=== PATIENT | male | born 1970 | race Caucasian/White ===

== ENCOUNTER 2017-08-01 11:32 | Inpatient (IN) | payer MEDICARE ==
[~2017-08-01] VITALS: Ht 170.2 cm; Wt 68.0 kg
[~2017-08-01 11:32] MED LIST: BACL20 PO; BACL20TA PO; CARB100C PO; CARB200 PO; CARV12.5 PO; CLOP75 PO; CORE25TA PO; DIPH50 PO; ECOT81TA2 PO; FURO1TAB93 PO; HALO10 PO; HYDR-3129 PO; IBUP800T23 PO; KCL20 PO; KLON2TAB PO; LAMO200T PO; MUPI2%T TOP; PLAV75TA PO; POTA10TA2 PO; PRAV20 PO; SERO400T PO; TRAZ100T4 PO; TRAZ300T2 PO; [UNRECOGNIZED DRUG - CODE] PO
[2017-08-01 11:37] VITALS: BP 152/78; PULSE 102; RESP 18; TEMP 98.5; O2SAT 96
[2017-08-01 13:05] LABS: AUTOMATED NEUTROPHIL # 6.6 TH/MM3 (1.8-7.7); BASOPHIL % 0.2 % (0.0-2.0); EOSINOPHIL % 0.1 % (0.0-4.0); HEMATOCRIT 49.5 % (39.0-51.0); HEMOGLOBIN 17.1 GM/DL (13.0-17.0); LYMPH % 14.4 % (9.0-44.0); LYMPHOCYTE # 1.2 TH/MM3 (1.0-4.8); MEAN CORPUSCULAR HEMOGLOBIN 33.8 PG (27.0-34.0); MEAN CORPUSCULAR HGB CONC 34.5 % (32.0-36.0); MEAN PLATELET VOLUME 7.6 FL (7.0-11.0); MONO % 6.9 % (0.0-8.0); MONOCYTE # 0.6 TH/MM3 (0-0.9); NEUT % 78.4 % (16.0-70.0); PLATELET COUNT 223 TH/MM3 (150-450); RED BLOOD COUNT 5.05 MIL/MM3 (4.50-5.90); RED CELL DISTRIBUTION WIDTH 14.6 % (11.6-17.2); WHITE BLOOD COUNT 8.5 TH/MM3 (4.0-11.0)
[2017-08-01 13:27] LABS: BICARBONATE 26.6 MEQ/L (21.0-32.0); BLOOD UREA NITROGEN 11 MG/DL (7-18); CALCIUM 9.3 MG/DL (8.5-10.1); CHLORIDE 100 MEQ/L (98-107); CREATININE 1.18 MG/DL (0.60-1.30); GLOMERULAR FILTRATION RATE 66 ML/MIN (>89); GLUCOSE,RANDOM 241 MG/DL (74-106); SODIUM (NA) 139 MEQ/L (136-145)
[2017-08-01] MEDS ORDERED: OLANZapine IM 10 MG VIAL IM ONE (13:45)
[2017-08-01] MEDS ORDERED: diphenhydrAMINE HCL 50 MG/ML VIAL IM ONE ×2 (13:45→15:30)
--- NOTE | 2017-08-01 14:49 | PD ---
HPI Chief Complaint: Psychiatric Symptoms Time Seen by Provider: 13:17 Travel History International Travel<30 days: No Contact w/Intl Traveler<30days: No Traveled to known affect area: No History of Present Illness HPI 39-year-old male that presents to the ED for evaluation of voluntary psych evaluation. Per report given by ED nurse apparently brought the patient here because he has not been sleeping for some time and has been acting bizarre. He does have a history of bipolar disorder and psychosis and has been here in the past but has been some years since his last admission here. He himself cannot really give me much history and he appears to be actively psychotic. He per ED nurse report has been taking of his clothes multiple times and walked into other patient's rooms. He appears to follow commands if resurrected but he continues to be somewhat psychotic. History is very limited. Patient himself cannot really give much history. He denies any suicidal homicidal ideation. No obvious sign of substance abuse. He does have a history of COPD. History of heart disease for more medical records. Unclear if patient takes any medications currently. Again history is limited. By the time I had to see the patient patient had to be medicated secondary to psychosis. PFSH Past Medical History AAA: No ADD: No ADHD: No Alzheimer's Disease: No Anemia: No Arthritis: No Asthma: No Atrial Fibrillation: No Autoimmune Disease: No Blood Disorders: No Bipolar Disorder: No Anxiety: No Depression: Yes Heart Rhythm Problems: No Cancer: No Cardiac Catheterization: No Cardiomyopathy: No Cardiovascular Problems: Yes Cerebral Palsy: No High Cholesterol: No Chemotherapy: No Chest Pain: No Congestive Heart Failure: No Cirrhosis: No COPD: Yes Cerebrovascular Accident: No Coronary Artery Disease: No Cystic Fibrosis: No Dementia: No Developmental Delay: No Diabetes: No Patient Takes Glucophage: No Dialysis: No Diminished Hearing: No Diverticulitis: No Deep Vein Thrombosis: No Endocrine: No Fibromyalgia: No Gastrointestinal Disorders: No Genetic Disorder: No GERD: No Glaucoma: No Gout: No Genitourinary: Yes (urinary frequency) Headaches: No Hepatitis: No Hiatal Hernia: No Heparin Induced Thrombocytopen: No Herniated Disk: Yes Hypertension: No Immune Disorder: No Inguinal Hernia: No Implanted Vascular Access Dvce: No Insomnia: Yes Kidney Stones: No Medical other: No Musculoskeletal: No Neurologic: No Parkinson's Disease: No Psychiatric: Yes Reproductive: No Respiratory: Yes Resp. Syncytial Virus (RSV): No Integumentary: No Immunizations Current: Yes Migraines: No Myocardial Infarction: No Pancreatitis: No Pneumonia: No Radiation Therapy: No Renal Failure: No Schizophrenia: No Seizures: No Shingles: No Sickle Cell Disease: No Sleep Apnea: No Thyroid Disease: No Triglycerides - High: No Ulcer: No Tetanus Vaccination: Unknown Influenza Vaccination: No Past Surgical History Abdominal Aneurysm Repair: No Abdominal Surgery: No AICD: No Appendectomy: No Arteriovenous Shunt: No Cardiac Surgery: Yes Cholecystectomy: No Coronary Artery Bypass Graft: Yes Coronary Stent: No Ear Surgery: No Endocrine Surgery: No Eye Surgery: No Genitourinary Surgery: No Gynecologic Surgery: No Insulin Pump: No Joint Replacement: No Mastectomy: No Neurologic Surgery: No Oral Surgery: No Pacemaker: No Prostatectomy: No Thoracic Surgery: No Tonsillectomy: No Tympanostomy Tube: No Valve Replacement: No Other Surgery: No Family History Family Breast Cancer: No Family Myocardial Infarction: No Family Hypercholesterolemia: No Social History Alcohol Use: Yes (Alot) Tobacco Use: Yes Substance Use: Yes Allergies-Medications (Allergen,Severity, Reaction): Coded Allergies: No Known Allergies (Unverified , 06/12/14) Reported Meds & Prescriptions Reported Meds & Active Scripts Active Bactroban 2% Cream (15gm) (Mupirocin) 15 Applic/15 Gm Cr 1 Applic TOP Q12 Desyrel 100 Mg Tab (Trazodone Hcl) 100 Mg Tab 300 Mg PO HS Pravastatin Sodium 20 Mg Tab 20 Mg PO HS Kcl 20 Meq Tab (Potassium Chloride) 20 Meq Tabcr 20 Meq PO BID Haldol (Haloperidol) 10 Mg Tab 10 Mg PO BID Furosemide 40 Mg Tab 40 Mg PO DAILY Diphenhydramine HCl 50 Mg Cap 50 Mg PO HS Plavix (Clopidogrel Bisulfate) 75 Mg Tab 75 Mg PO DAILY Coreg 12.5 mg (Carvedilol) 12.5 Mg Tab 25 Mg PO Q12 Carbamazepine 100 Mg Chew 100 Mg PO HS Tegretol 200 Mg Tab (Carbamazepine) 200 Mg Tab 200 Mg PO BID Baclofen 20 Mg Tab 20 Mg PO TID Ecotrin (Aspirin) 81 Mg Tabec 81 Mg PO DAILY Reported Potassium Chloride Er (Potassium Chloride) 10 Meq Tab 20 Meq PO BID Lasix (Furosemide) 40 Mg Tab 40 Mg PO DAILY Lioresal 20 Mg Tab (Baclofen) 20 Mg Tab 20 Mg PO TID Lamictal (Lamotrigine) 200 Mg Tab 200 Mg PO DAILY Seroquel 400 mg (Quetiapine Fumarate) 400 Mg Tab 800 Mg PO HS Polson 10/325 (Hydrocodone-Acetaminophen 10/325) Acetaminophen 325/10 Hydrocodone Tab 1 Tab PO Q6H PRN Benadryl Allergy & Sinus (Diphenhydramine-Phenylephrine-) Sinus Tab 50 Mg PO HS Ibuprofen 800 Mg Tab 800 Mg PO TID PRN Coreg 25 mg (Carvedilol) 25 Mg Tab 25 Mg PO BID Plavix (Clopidogrel Bisulfate) 75 Mg Tab 75 Mg PO DAILY Klonopin (Clonazepam) 2 Mg Tab 1 Mg PO QID Trazodone Hcl (Trazodone HCl) 300 Mg Tab 300 Mg PO HS Review of Systems ROS Limitations: Psychotic, Poor Historian Except as stated in HPI: all other systems reviewed are Neg Physical Exam Exam Limitations: Poor Historian, Psychotic Narrative GENERAL: SKIN: Warm and dry. HEAD: Atraumatic. Normocephalic. EYES: Pupils equal and round. No scleral icterus. No injection or drainage. ENT: No nasal bleeding or discharge. Mucous membranes pink and moist. Tongue is midline. No uvula deviation. NECK: Trachea midline. No JVD. CARDIOVASCULAR: Regular rate and rhythm. No murmurs, S3, S4. RESPIRATORY: No accessory muscle use. Clear to auscultation. Breath sounds equal bilaterally. GASTROINTESTINAL: Abdomen soft, non-tender, nondistended. Hepatic and splenic margins not palpable. MUSCULOSKELETAL: Extremities without clubbing, cyanosis, or edema. No obvious deformities. Full range of motion of the upper and lower extremities bilaterally. 2+ pulses bilaterally. NEUROLOGICAL: Awake and alert. No obvious cranial nerve deficits. Motor grossly within normal limits. Five out of 5 muscle strength in the arms and legs. Normal speech. PSYCHIATRIC: psychotic mood and affect; insight and judgment questionable Data Data Last Documented VS Vital Signs Date Time Temp Pulse Resp B/P (MAP) Pulse Ox O2 Delivery O2 Flow Rate FiO2 08/01/17 11:37 98.5 102 18 152/78 (102) 96 Orders Orders Complete Blood Count With Diff (08/01/17 12:35) Thyroid Stimulating Hormone (08/01/17 12:35) Basic Metabolic Panel (Bmp) (08/01/17 12:35) Psych Screen (08/01/17 12:35) Drug Screen, Random Urine (08/01/17 12:35) Alcohol (Ethanol) (08/01/17 12:35) Olanzapine Inj (Zyprexa Inj) (08/01/17 13:45) Diphenhydramine Inj (Benadryl Inj) (08/01/17 13:45) Restraints Violent (08/01/17 13:56) Labs Laboratory Tests Test 08/01/17 12:45 White Blood Count 8.5 TH/MM3 Red Blood Count 5.05 MIL/MM3 Hemoglobin 17.1 GM/DL Hematocrit 49.5 % Mean Corpuscular Volume 98.0 FL Mean Corpuscular Hemoglobin 33.8 PG Mean Corpuscular Hemoglobin Concent 34.5 % Red Cell Distribution Width 14.6 % Platelet Count 223 TH/MM3 Mean Platelet Volume 7.6 FL Neutrophils (%) (Auto) 78.4 % Lymphocytes (%) (Auto) 14.4 % Monocytes (%) (Auto) 6.9 % Eosinophils (%) (Auto) 0.1 % Basophils (%) (Auto) 0.2 % Neutrophils # (Auto) 6.6 TH/MM3 Lymphocytes # (Auto) 1.2 TH/MM3 Monocytes # (Auto) 0.6 TH/MM3 Eosinophils # (Auto) 0.0 TH/MM3 Basophils # (Auto) 0.0 TH/MM3 CBC Comment DIFF FINAL Differential Comment Blood Urea Nitrogen 11 MG/DL Creatinine 1.18 MG/DL Random Glucose 241 MG/DL Calcium Level 9.3 MG/DL Sodium Level 139 MEQ/L Potassium Level 3.5 MEQ/L Chloride Level 100 MEQ/L Carbon Dioxide Level 26.6 MEQ/L Anion Gap 12 MEQ/L Estimat Glomerular Filtration Rate 66 ML/MIN Thyroid Stimulating Hormone 3rd Gen 0.481 uIU/ML Ethyl Alcohol Level LESS THAN 3 MG/DL MDM Medical Decision Making Medical Screen Exam Complete: Yes Emergency Medical Condition: Yes Medical Record Reviewed: Yes Interpretation(s) CBC & BMP Diagram 08/01/17 12:45 Calcium Level 9.3 Differential Diagnosis Depression versus suicidal ideation versus anxiety versus adjustment disorder versus mood disorder versus bipolar disorder versus schizophrenia versus paranoid disorder versus psychosis versus substance abuse versus alcohol abuse versus alcohol induced psychosis versus homicidality addition versus cutting versus personality disorder Narrative Course 47-year-old male that presents to the ED for evaluation of psych. Patient was properly examined and was found to have signs and symptoms consistent with psychiatric illness. Labs were done. Labs were essentially unremarkable. Patient had to be medicated secondary to psychosis. Patient had to be restrained by seclusion. At this time patient will be medically clear. Okay to be seen by psych. Mental health screening was discussed with the patient. Diagnosis Primary Impression: Psychosis Qualified Codes: F29 - Unspecified psychosis not due to a substance or known physiological condition Chirag Quiles Aug 01, 2017 14:49
[2017-08-01] MEDS ORDERED: LORazepam 2 MG/ML VIAL IM ONE (15:30)
[2017-08-01] MEDS ORDERED: HALOPERIDOL LACTATE 5 MG/ML AMP IM ONE ×2 (15:30→22:15)
[2017-08-01 17:57] VITALS: BP 122/72; PULSE 97; RESP 18; O2SAT 18; O2SAT 98
[2017-08-01] MEDS ORDERED: HALOPERIDOL 10 MG TAB PO ONE (22:15)
[2017-08-01] MEDS ORDERED: diphenhydrAMINE HCL 50 MG CAP PO ONE (22:15)
[2017-08-01 23:24] VITALS: BP 136/73; PULSE 86; RESP 18; TEMP 98.9; O2SAT 96
[2017-08-02] MEDS ORDERED: diphenhydrAMINE HCL 50 MG/ML VIAL IM ONE (06:00)
[2017-08-02] MEDS ORDERED: OLANZapine IM 10 MG VIAL IM ONE (06:00)
[2017-08-02] MEDS ORDERED: MAGNESIUM HYDROXIDE SUSP 30 ML CUP PO PRN ×2 (08:15→13:30)
[2017-08-02] MEDS ORDERED: LORazepam 1 MG TAB PO PRN (08:15)
[2017-08-02] MEDS ORDERED: ALUMINUM/MAGNESIUM/SIMETH 30 ML CUP PO PRN (08:15)
[2017-08-02] MEDS ORDERED: ACETAMINOPHEN 325 MG TAB PO PRN (08:15)
[2017-08-02] MEDS ORDERED: LORazepam 0.5 MG TAB PO PRN (08:15)
[2017-08-02] MEDS ORDERED: LORazepam 2 MG/ML VIAL IM PRN ×2 (08:15)
[2017-08-02] MEDS: NICOTINE 21 MG/24 HR PATCH T-DERMAL SCH (09:00)
[2017-08-02] MEDS ORDERED: CLON1TAB PO (09:23)
[2017-08-02] MEDS ORDERED: TRAZ300T2 PO (09:24)
[2017-08-02] MEDS ORDERED: HALO20TA PO (09:25)
[2017-08-02] MEDS ORDERED: PLAV75TA29 PO (09:26)
[2017-08-02] MEDS ORDERED: SIMV10TA PO (09:26)
[2017-08-02] MEDS ORDERED: LAMI200T PO (09:27)
[2017-08-02] MEDS ORDERED: CORE25TA PO (09:28)
[2017-08-02] MEDS ORDERED: BACL20TA PO (09:29)
[2017-08-02] MEDS ORDERED: LORazepam 2 MG/ML VIAL IM STA (11:50)
[2017-08-02 12:18] VITALS: BP 150/85; PULSE 92; RESP 20; TEMP 97.8; O2SAT 98
[2017-08-02 12:53] VITALS: BP 167/91; PULSE 93; RESP 18; O2SAT 98
[2017-08-02] MEDS ORDERED: SODIUM CHLORIDE 0.9% FLUSH 10 ML FLUSH IVF PRN (13:00)
[2017-08-02] MEDS ORDERED: SUCCINYLCHOLINE CHLORIDE 200 MG/10 ML VIAL IV PUSH ONE (13:00)
[2017-08-02] MEDS ORDERED: ETOMIDATE 20 MG/10 ML VIAL IVP ONE (13:00)
[2017-08-02] MEDS ORDERED: SODIUM CHLOR 0.9% 1000 ML INJ 1,000 ML IV ONE ×2 (13:15→14:45)
[2017-08-02] MEDS ORDERED: ZIPRASIDONE MESYLATE 20 MG VIAL IM ONE (13:15)
[2017-08-02] MEDS ORDERED: LORazepam 2 MG/ML VIAL IV PUSH ONE (13:15)
[2017-08-02] MEDS ORDERED: BISACODYL 10 MG SUPP RECTAL PRN (13:30)
[2017-08-02] MEDS ORDERED: NALOXONE HCL 0.4 MG/ML AMP IV PUSH PRN (13:30)
[2017-08-02] MEDS ORDERED: LACTULOSE SYRUP 20 GM/30 ML CUP PO PRN (13:30)
[2017-08-02] MEDS ORDERED: SODIUM CHLORIDE 0.9% FLUSH 10 ML FLUSH IV FLUSH PRN (13:30)
[2017-08-02] MEDS ORDERED: SENNOSIDES 8.6 MG TAB PO PRN (13:30)
[2017-08-02] MEDS ORDERED: ONDANSETRON ODT 4 MG TAB SL PRN (13:30)
--- NOTE | 2017-08-02 13:51 | HHI.HP ---
HPI Service [facility] Hospitalists Primary Care Physician Unknown Admission Diagnosis Unspecified psychosis Diagnoses: Chief Complaint: Psychosis Travel History International Travel<30 Days: No Contact w/Intl Traveler <30 Da: No Traveled to Known Affected Are: No History of Present Illness Written by Martita Avilez, acting as scribe for Dr. Sharma on 08/02/17 at 13: 49. This is a 47-year-old male with a past medical history significant for coronary artery disease status post CABG in 2007, bipolar disorder, depression/anxiety, dyslipidemia, COPD with ongoing tobaccoism and peripheral vascular disease status post stenting who presented to [facility] ED with acute psychosis. Patient is a poor historian and much of the history is obtained from review of the medical record. Per review of the ED note, patient's brought him into the facility because he has not been sleeping and has been acting bizarre. In the ED, patient reportedly was taking his clothes off multiple times and patient repetitively walked into other patient's rooms. In the ED, patient was administered 100 mg of IM Thorazine, 10 mg of IM Zyprexa, 50 mg of IM Benadryl and 5 mg IM Haldol earlier today. His urine tox was positive for cannabis only. Patient denies any specific medical complaints but does state he feels "terrible". He is able to correctly tell me the month, year and president. Patient is currently afebrile. Blood pressure is 167/91. CBC is unremarkable. Chemistry panel significant for sodium level 131, potassium 3.2, slightly elevated glucose 111, CK of 3011 and CK-MB of 29.9. Patient has been evaluated by psychiatry who has requested patient be admitted to the medical floor given his high risk of respiratory failure and anticholinergic delirium. Review of Systems Except as stated in HPI: all other systems reviewed are Neg Past Family Social History Past Medical History CAD s/p CABG in 2007 Dyslipidemia COPD Depression/anxiety PVD Bipolar disorder Osteoarthritis Past Surgical History CABG in 2007 PVD s/p stenting Reported Medications Haldol Cogentin Baclofen 20 Mg Tab 20 Mg PO TID Coreg (Carvedilol) 25 Mg Tab 25 Mg PO DAILY Lamictal (Lamotrigine) 200 Mg Tab 200 Mg PO DAILY Simvastatin 10 Mg Tab 10 Mg PO DAILY Plavix (Clopidogrel Bisulfate) 75 Mg Tab 75 Mg PO DAILY Haloperidol 20 Mg Tab 20 Mg PO DAILY Trazodone (Trazodone HCl) 300 Mg Tab 300 Mg PO HS Clonazepam 1 Mg Tab 1 Mg PO QID Allergies: Coded Allergies: No Known Allergies (Unverified , 06/12/14) Active Ordered Medications Current Medications Medications (Trade) Dose Ordered Sig/Teresa Route Start Time Stop Time Status Last Admin (Ativan) 1 mg Q6H PRN PO 08/02/17 08:15 (Ativan Inj) 1 mg Q6H PRN IM 08/02/17 08:15 (Tylenol) 650 mg Q4H PRN PO 08/02/17 08:15 (Milk Of Magnesia Liq) 30 ml DAILY PRN PO 08/02/17 08:15 (Mag-Al Plus Susp Liq) 30 ml Q6H PRN PO 08/02/17 08:15 (Habitrol 21 Mg Patch.24 Hr) 1 patch DAILY T-DERMAL 08/02/17 09:00 Miscellaneous Information 1 HS T-DERMAL 08/02/17 21:00 (NS Flush) 2 ml UNSCH PRN IVF 08/02/17 13:00 Sodium Chloride 1,000 ml @ 999 mls/hr BOLUS ONCE IV 08/02/17 13:15 08/02/17 14:15 08/02/17 13:32 (NS Flush) 2 ml UNSCH PRN IV FLUSH 08/02/17 13:30 UNV (NS Flush) 2 ml BID IV FLUSH 08/02/17 21:00 UNV (Zofran Inj) 4 mg Q6H PRN IVP 08/02/17 13:30 UNV (Narcan Inj) 0.4 mg UNSCH PRN IV PUSH 08/02/17 13:30 UNV (Milk Of Magnesia Liq) 30 ml Q12H PRN PO 08/02/17 13:30 UNV (Senokot) 17.2 mg Q12H PRN PO 08/02/17 13:30 UNV (Dulcolax Supp) 10 mg DAILY PRN RECTAL 08/02/17 13:30 UNV (Lactulose Liq) 30 ml DAILY PRN PO 08/02/17 13:30 UNV Family History Reviewed with patient, not contributory Social History He has been smoking since the age of 11, he smokes a pack a day. He reports occasional EtOH use. He admits to marijuana use only. He states he lives in [place] with his brother. Physical Exam Vital Signs Vital Signs Date Time Temp Pulse Resp B/P (MAP) Pulse Ox O2 Delivery O2 Flow Rate FiO2 08/02/17 13:01 97 Nasal Cannula 2.00 08/02/17 12:53 93 18 167/91 (116) 98 Room Air 08/02/17 12:18 97.8 92 20 150/85 (106) 98 Room Air 08/01/17 23:24 98.9 86 18 136/73 (94) 96 Room Air 08/01/17 17:57 97 18 122/72 (89) 98 Room Air Physical Exam GENERAL: This is a well-nourished, well-developed male patient, in no apparent distress. In four-point tough restraints. Awake and appears mostly oriented. SKIN: No rashes, ecchymoses or lesions. Warm and dry. HEAD: Atraumatic. Normocephalic. No temporal or scalp tenderness. EYES: Pupils equal round and reactive. Extraocular motions intact. No scleral icterus. No injection or drainage. ENT: Nose without bleeding or purulent drainage. Throat without erythema, tonsillar hypertrophy or exudate. Uvula midline. Airway patent. NECK: Trachea midline. No lymphadenopathy. Supple, nontender, no meningeal signs. CARDIOVASCULAR: Regular rate and rhythm without murmurs, gallops, or rubs. RESPIRATORY: Clear to auscultation. Breath sounds equal bilaterally. No wheezes , rales, or rhonchi. GASTROINTESTINAL: Abdomen soft, non-tender, nondistended. No hepato-splenomegaly , or palpable masses. No guarding. MUSCULOSKELETAL: Extremities without clubbing, cyanosis, or edema. No joint tenderness, effusion, or edema noted. No calf tenderness. NEUROLOGICAL: Awake and alert. Cranial nerves II through XII grossly intact. Motor and sensory grossly within normal limits. No focal neurologic findings appreciated. Normal speech. Laboratory Laboratory Tests Test 08/01/17 20:06 08/02/17 11:11 08/02/17 13:00 Urine Opiates Screen NEG Urine Barbiturates Screen NEG Urine Amphetamines Screen NEG Urine Benzodiazepines Screen NEG Urine Cocaine Screen NEG Urine Cannabinoids Screen POS Lactic Acid Level 1.4 Result Diagram: 08/01/17 1245 08/01/[address] [facility] VTE Risk Assessment Caprin VTE Risk Assessment: No/Low Risk (score <= 1) Caprini Risk Assessment Model Point Value = 1 Point Value = 2 Point Value = 3 Point Value = 5 Age 41-60 Minor surgery BMI > 25 kg/m2 Swollen legs Varicose veins or History of unexplained or recurrent spontaneous Oral contraceptives or hormone replacement Sepsis (< 1 month) Serious lung disease, including pneumonia (< 1 month) Abnormal pulmonary function Acute myocardial infarction Congestive heart failure (< 1 month) History of inflammatory bowel disease Medical patient at bed rest Age 61-74 Arthroscopic surgery Major open surgery (> 45 min) Laparoscopic surgery (> 45 min) Malignancy Confined to bed (> 72 hours) Immobilizing plaster cast Central venous access Age >= 75 History of VTE Family history of VTE Factor V Leiden Prothrombin [id number] Lupus anticoagulant Anticardiolipin antibodies Elevated serum homocysteine Heparin-induced thrombocytopenia Other congenital or acquired thrombophilia Stroke (< 1 month) Elective arthroplasty Hip, pelvis, or leg fracture Acute spinal cord injury (< 1 month) Prophylaxis Regimen Total Risk Factor Score Risk Level Prophylaxis Regimen 0-1 Low Early ambulation 2 Moderate Order ONE of the following: *Sequential Compression Device (SCD) *Heparin 5000 units SQ BID 3-4 Higher Order ONE of the following medications: *Heparin 5000 units SQ TID *Enoxaparin/Lovenox 40 mg SQ daily (WT < 150 kg, CrCl > 30 mL/min) *Enoxaparin/Lovenox 30 mg SQ daily (WT < 150 kg, CrCl > 10-29 mL/min) *Enoxaparin/Lovenox 30 mg SQ BID (WT < 150 kg, CrCl > 30 mL/min) AND/OR *Sequential Compression Device (SCD) 5 or more Highest Order ONE of the following medications: *Heparin 5000 units SQ TID (Preferred with Epidurals) *Enoxaparin/Lovenox 40 mg SQ daily (WT < 150 kg, CrCl > 30 mL/min) *Enoxaparin/Lovenox 30 mg SQ daily (WT < 150 kg, CrCl > 10-29 mL/min) *Enoxaparin/Lovenox 30 mg SQ BID (WT < 150 kg, CrCl > 30 mL/min) AND *Sequential Compression Device (SCD) Assessment and Plan Assessment and Plan 47-year-old male with a past medical history significant for coronary artery disease status post CABG in 2007, bipolar disorder, depression/anxiety, dyslipidemia, COPD with ongoing tobaccoism and peripheral vascular disease status post stenting who presented to [facility] ED with acute psychosis. Acute psychosis, uncertain etiology Concern for anti-cholinergic delirium/respiratory failure History of bipolar disorder History of depression/anxiety Urine tox screen + for cannabis only Neg RPR 2012 -Consult psychiatry, appreciate assistance -Neurochecks, monitor vitals -Monitor on cardiac telemetry Rhabdomyolysis CK 3011 CKMB 29.9 -IVF hydration -trend CK -Monitor kidney function closely, repeat BMP in a.m. -hold home statin therapy for now Hypokalemia -po repletion ordered -repeat BMP in am Hyponatremia, suspect secondary to dehydration/poor p.o. intake -IV fluid -Monitor sodium level CAD s/p CABG x 4 2007 HTN Patient has no complaints of chest pain at this time -Monitor on telemetry -Resume patient on Plavix and Coreg (patients Coreg dose listed as 25mg daily in med rec, will order 12.5mg BID) -clonidine prn with parameters -continue to monitor COPD, not in acute exacerbation Ongoing tobaccoism -monitor respiratory status -Duonebs prn DVT prophylaxis -bilateral SCD/JODIE batista Discussed Condition With ED physician, patient Physician Certification 2 Midnight Certification Type: Admission for Inpatient Services Order for Inpatient Services The services are ordered in accordance with Medicare regulations or non- Medicare payer requirements, as applicable. In the case of services not specified as inpatient-only, they are appropriately provided as inpatient services in accordance with the 2-midnight benchmark. Estimated LOS (days): 3 3 days is the estimated time the patient will need to remain in the hospital, assuming treatment plan goals are met and no additional complications. Post-Hospital Plan: Not yet determined Notes: This note was transcribed by renée Avilez. I, Dr. Roscoe Sharma personally performed the history, physical exam, and medical decision making; and confirmed the accuracy of the information in the transcribed note. Authenticated by Dr. Roscoe Sharma on 08/03/17 at 10:05. Martita Avilez Aug 02, 2017 13:51 Roscoe Sharma MD Aug 03, 2017 10:05
[2017-08-02 14:00] VITALS: BP 145/87; PULSE 124; RESP 17; O2SAT 98
[2017-08-02 14:24] LABS: BICARBONATE 24.7 MEQ/L (21.0-32.0); CALCIUM 8.2 MG/DL (8.5-10.1); CREATININE 0.68 MG/DL (0.60-1.30)
--- NOTE | 2017-08-02 14:45 | EKG ---
Date Performed: 08/01/2017 Time Performed: 19:39:04 PTAGE: 47 years EKG: Sinus rhythm NONSPECIFIC T-WAVE ABNORMALITY BORDERLINE ECG PREVIOUS TRACING 08/01/17 Now consider anterior ischemia DOCTOR: Deshawn Wynn Interpretating Date/Time 08/02/2017 14:43:38
--- NOTE | 2017-08-02 15:05 | PD.PSY.CON ---
Provisional Diagnosis Admission Date Aug 02, 2017 at 08:12 [place] I. Unspecified psychosis [place] II. Deferred [place] III. No significant medical history History of Present Illness Service Psychiatry Consult Requested By ER Reason for Consult Agitation and acute psychosis Primary Care Physician Unknown HPI The patient is a 39-year-old man, domiciled his , with psychiatric history of psychosis, bipolar disorder, cannabis use disorder, previous psychiatric hospitalizations, he was hospitalized here in [place] in 2014 under the care of Dr. Briggs, documentation reviewed, he has established outpatient care, he is on Haldol 20 mg, lamotrigine 200 mg, trazodone 200 mg, medical history of COPD, who presents to the ED for evaluation of voluntary psych evaluation. Per report given by ED nurse apparently brought the patient here because he has not been sleeping for some time and has been acting bizarre. He himself cannot really give me much history and he appears to be actively psychotic. He per ED nurse report has been taking of his clothes multiple times and walked into other patient's rooms. He appears to follow commands if resurrected but he continues to be somewhat psychotic. History is very limited. Patient himself cannot really give much history. He denies any suicidal homicidal ideation. No obvious sign of substance abuse. He does have a history of COPD. History of heart disease for more medical records. Unclear if patient takes any medications currently. Again history is limited. By the time I had to see the patient patient had to be medicated secondary to psychosis. As per EMR review and collateral information by nurses, the patient has been extremely agitated, acting bizarre, intrusive in the unit, had to be medicated with ETOs in multiple occasions. Is currently restrained in four- point since this morning. He is unable to provide any meaningful information for the psychiatric assessment due to the level of psychosis and disorganization. Patient is loud, making weird noises, yelling nonsense. With redirection the patient does report using LSD, at the same time he says that he used PCP and other drugs, I do not know how reliable this information is. he has been medicated in the last 24 hours with: 200 mg of Benadryl, Haldol 25 mg, Ativan 4 mg, Thorazine 100 mg, olanzapine 20 mg and he has not been able to be controlled. I have reordered labs, CPK is over 3000. I have communicated with ER team to transfer the patient to the medical floor given his high risk of respiratory failure/anticholinergic delirium/rhabdomyolysis. Review of Systems ROS Limitations: Uncooperative, Refused Past Family Social History Coded Allergies: No Known Allergies (Unverified , 06/12/14) Reported Medications Baclofen (Baclofen) 20 Mg Tab, 20 MG PO TID for Muscle Spasm, TAB 0 Refills 08/02/17 Carvedilol (Coreg) 25 Mg Tab, 25 MG PO DAILY, #60 TAB 0 Refills 08/02/17 Lamotrigine (Lamictal) 200 Mg Tab, 200 MG PO DAILY for Control Seizures, #30 TAB 0 Refills 08/02/17 Simvastatin (Simvastatin) 10 Mg Tab, 10 MG PO DAILY for Cholesterol Management, #30 TAB 0 Refills 08/02/17 Clopidogrel (Plavix) 75 Mg Tab, 75 MG PO DAILY for Blood Clot Prevention, #30 TAB 0 Refills 08/02/17 Haloperidol (Haloperidol) 20 Mg Tab, 20 MG PO DAILY, #30 TAB 0 Refills 08/02/17 Trazodone (Trazodone) 300 Mg Tab, 300 MG PO HS for Control Depression, #30 TAB 0 Refills 08/02/17 Clonazepam (Clonazepam) 1 Mg Tab, 1 MG PO QID, #90 TAB 0 Refills 08/02/17 Discontinued Reported Medications Potassium Chloride (Potassium Chloride Er) 10 Meq Tab, 20 MEQ PO BID, TAB 06/12/14 Furosemide (Lasix) 40 Mg Tab, 40 MG PO DAILY, TAB 06/12/14 Baclofen (Lioresal 20 Mg Tab) 20 Mg Tab, 20 MG PO TID, TAB 06/12/14 Lamotrigine (Lamictal) 200 Mg Tab, 200 MG PO DAILY, TAB 06/12/14 Quetiapine fumurate 400 mg (Seroquel 400 mg) 400 Mg Tab, 800 MG PO HS, TAB 06/12/14 Hydrocodone-Acetaminophen 10-325 mg (Rochelle 10-325 mg) Acetaminophen 325/10 Hydrocodone Tab, 1 TAB PO Q6H Y for PAIN, TAB 06/12/14 Diphenhydramine-Phenylephrine- (Benadryl Allergy & Sinus) Sinus Tab, 50 MG PO HS 11/02/12 Ibuprofen (Ibuprofen) 800 Mg Tab, 800 MG PO TID Y for PAIN, TAB 11/02/12 Carvedilol 25 mg (Coreg 25 mg) 25 Mg Tab, 25 MG PO BID, TAB 11/02/12 Clopidogrel Bisulfate (Plavix) 75 Mg Tab, 75 MG PO DAILY, TAB 11/02/12 Clonazepam (Klonopin) 2 Mg Tab, 1 MG PO QID, TAB 11/02/12 Trazodone Hcl (Trazodone Hcl) 300 Mg Tab, 300 MG PO HS, TAB 11/02/12 Discontinued Scripts Mupirocin 2% Cream (15gm) (Bactroban 2% Cream (15gm)) 15 Applic/15 Gm Cr, 1 APPLIC TOP Q12 for infection, #1 TUBE 0 Refills Prov:Irving Briggs MD 07/02/14 Trazodone Hcl (Desyrel 100 Mg Tab) 100 Mg Tab, 300 MG PO HS for insomnia, #30 TAB 0 Refills Prov:Irving Briggs MD 07/02/14 Pravastatin Sodium (Pravastatin Sodium) 20 Mg Tab, 20 MG PO HS for cholesterol, #30 TAB 0 Refills Prov:Irving Briggs MD 07/02/14 Potassium Chloride (Kcl 20 Meq Tab) 20 Meq Tabcr, 20 MEQ PO BID for hypertension , #60 TAB.SR 0 Refills Prov:Irving Briggs MD 07/02/14 Haloperidol (Haldol) 10 Mg Tab, 10 MG PO BID for mental health, #60 TAB 0 Refills Prov:Irving Briggs MD 07/02/14 Furosemide (Furosemide) 40 Mg Tab, 40 MG PO DAILY for blood pressure, #30 TAB 0 Refills Prov:Irving Briggs MD 07/02/14 Diphenhydramine HCl (Diphenhydramine HCl) 50 Mg Cap, 50 MG PO HS for sleep, #30 CAP 0 Refills Prov:Irving Briggs MD 07/02/14 Clopidogrel Bisulfate (Plavix) 75 Mg Tab, 75 MG PO DAILY for circulation, #30 TAB 0 Refills Prov:Irving Briggs MD 07/02/14 Carvedilol 12.5 mg (Coreg 12.5 mg) 12.5 Mg Tab, 25 MG PO Q12 for blood pressure , #60 TAB 0 Refills Prov:Irving Briggs MD 07/02/14 Carbamazepine (Carbamazepine) 100 Mg Chew, 100 MG PO HS for mental health, #30 EA 0 Refills Prov:Irving Briggs MD 07/02/14 Carbamazepine (Tegretol 200 Mg Tab) 200 Mg Tab, 200 MG PO BID for mental health , #60 TAB 0 Refills Prov:Irving Briggs MD 07/02/14 Baclofen (Baclofen) 20 Mg Tab, 20 MG PO TID for muscle spasm, #90 TAB 0 Refills Prov:Irving Briggs MD 07/02/14 Aspirin (Ecotrin Low Strength) 81 Mg Tabec, 81 MG PO DAILY for health, #30 TAB.EC 0 Refills Prov:Irving Briggs MD 07/02/14 Current Medications Medications (Trade) Dose Ordered Sig/Teresa Route Start Time Stop Time Status Last Admin (Ativan) 1 mg Q6H PRN PO 08/02/17 08:15 (Ativan Inj) 1 mg Q6H PRN IM 08/02/17 08:15 (Tylenol) 650 mg Q4H PRN PO 08/02/17 08:15 (Milk Of Magnesia Liq) 30 ml DAILY PRN PO 08/02/17 08:15 (Mag-Al Plus Susp Liq) 30 ml Q6H PRN PO 08/02/17 08:15 (Habitrol 21 Mg Patch.24 Hr) 1 patch DAILY T-DERMAL 08/02/17 09:00 Miscellaneous Information 1 HS T-DERMAL 08/02/17 21:00 (NS Flush) 2 ml UNSCH PRN IVF 08/02/17 13:00 (NS Flush) 2 ml UNSCH PRN IV FLUSH 08/02/17 13:30 (NS Flush) 2 ml BID IV FLUSH 08/02/17 21:00 (Zofran Odt) 4 mg Q6H PRN SL 08/02/17 13:30 (Narcan Inj) 0.4 mg UNSCH PRN IV PUSH 08/02/17 13:30 (Milk Of Magnesia Liq) 30 ml Q12H PRN PO 08/02/17 13:30 (Senokot) 17.2 mg Q12H PRN PO 08/02/17 13:30 (Dulcolax Supp) 10 mg DAILY PRN RECTAL 08/02/17 13:30 (Lactulose Liq) 30 ml DAILY PRN PO 08/02/17 13:30 Sodium Chloride 1,000 ml @ 999 mls/hr BOLUS ONCE IV 08/02/17 14:45 08/02/17 15:45 Family Psych History No family psychiatric history Social History Patient lives with his Physical Exam Agitated, restless, restrained in four-point Vital Signs Vital Signs Date Time Temp Pulse Resp B/P (MAP) Pulse Ox O2 Delivery O2 Flow Rate FiO2 08/02/17 13:01 97 Nasal Cannula 2.00 08/02/17 12:53 93 18 167/91 (116) 08/02/17 12:18 97.8 I/O 08/02/17 08/02/17 08/03/17 08:00 16:00 00:00 Output Total 800 ml Balance -800 ml Lab Results Test 08/01/17 20:06 08/02/17 11:11 08/02/17 13:00 Urine Opiates Screen NEG Urine Barbiturates Screen NEG Urine Amphetamines Screen NEG Urine Benzodiazepines Screen NEG Urine Cocaine Screen NEG Urine Cannabinoids Screen POS Lactic Acid Level 1.4 mmol/L Blood Urea Nitrogen 5 MG/DL Creatinine 0.68 MG/DL Random Glucose 111 MG/DL Calcium Level 8.2 MG/DL Sodium Level 131 MEQ/L Potassium Level 3.2 MEQ/L Chloride Level 96 MEQ/L Carbon Dioxide Level 24.7 MEQ/L Anion Gap 10 MEQ/L Estimat Glomerular Filtration Rate 124 ML/MIN Total Creatine Kinase 3011 U/L Creatine Kinase MB 29.9 NG/ML Creatine Kinase MB % 1.0 % Mental Status Examination Appearance: Disheveled Consciousness: Obtunded, Clouded Orientation: Person Speech: Incoherent Attention and Concentration: Inadequate Memory: Impaired Mood: Angry Affect: Irritable, Labile Thought Process & Associations: Loose associations, Disorganized, Word salad Thought Content: Bizarre thinking, Racing thoughts, Delusional Hallucination Type: None Delusion Type: Bizarre, Paranoid Suicidal Ideation: No Suicidal Plan: No Suicidal Intention: No Homicidal Ideation: No Homicidal Plan: No Homicidal Intention: No Insight: Poor Judgment: Poor Assessment & Plan Problem List: (1) Unspecified psychosis ICD Codes: F29 - Unspecified psychosis not due to a substance or known physiological condition Assessment & Plan: On psychiatric evaluation I find a patient who is restrained in four-points, very agitated, disorganized, tangential, no making any sense. Apparently the patient has become extremely psychotic in the last days, with an acute exacerbation exactly in the last 2 days, as per . In the ER the patient has been extremely agitated, intrusive, no able to be redirected verbally, the patient has received a very high amount of psychotropics in the last 24 hours including, 25 mg of Haldol, 100 mg of Thorazine, 200 mg of Benadryl, 6 mg of Ativan, Geodon 10 mg, and the patient continues to be agitated and has not been able to be sedated. Now the patient presents with CPK over 3000. Due to the amount of medication given patient is now in a high risk for anticholinergic delirium, rhabdomyolysis also respiratory failure, for which I suggested the patient is transferred to the medical ER his place and close medical observation. A deeper sedation with intubation could be also consider by medical team given his refractory psychosis. I recommend another CBC, CMP, CPK, TSH, and even a brain CT to rule out a brain pathology as the etiology of current presentation. Once the patient is medically clear, he definitely meets criteria for involuntary psychiatric admission. Assessment & Plan Estimated LOS: Alberto Carrington MD Aug 02, 2017 15:05
[2017-08-02 16:00] VITALS: BP 129/66; PULSE 122; RESP 24; O2SAT 97
[2017-08-02] MEDS ORDERED: SODIUM CHLOR 0.9% 1000 ML INJ 1,000 ML IV SCH (16:15)
[2017-08-02] MEDS ORDERED: POTASSIUM CHLORIDE 10 MEQ CONTROLLED RELEASE TAB PO ONE (16:15)
[2017-08-02] MEDS ORDERED: cloNIDine HCL 0.1 MG TAB PO PRN (16:30)
[2017-08-02 17:00] VITALS: BP 147/76; PULSE 128; RESP 27; O2SAT 96
--- NOTE | 2017-08-02 17:45 | RADRPT ---
EXAM DATE: 08/02/2017 5:34 PM EDT AGE/SEX: 47 years / Male INDICATIONS: Altered mental status CLINICAL DATA: This is the patient's initial encounter. Patient reports that signs and symptoms have been present for 1 day and indicates a pain score of 0/10. MEDICAL/SURGICAL HISTORY: Cardiovascular disease. Chronic obstructive pulmonary disease. None. RADIATION DOSE: 36.42 CTDI (mGy) COMPARISON: No prior exams available for comparison. TECHNIQUE: CT of the head without contrast. Using automated exposure control and adjustment of the mA and/or kV according to patient size, radiation dose was kept as low as reasonably achievable to ob tain optimal diagnostic quality images. FINDINGS: Cerebrum: The ventricles are normal for age. No evidence of midline shift, mass lesion, hemorrhage or acute infarction. No extraaxial fluid collections are seen. Posterior Fossa: The cerebellum and brainstem are intact. The 4th ventricle is midline. The cerebe llopontine angle is unremarkable. Extracranial: The visualized portion of the orbits is intact. Skull: The calvaria is intact. No evidence of skull fracture. CONCLUSION: 1. Negative for acute process Electronically signed by: Nima Spicer MD 08/02/2017 5:44 PM EDT
[2017-08-02 20:12] VITALS: BP 132/88; PULSE 99; RESP 18
[2017-08-02] MEDS ORDERED: SODIUM CHLORIDE 0.9% FLUSH 10 ML FLUSH IV FLUSH SCH (21:00)
[2017-08-02] MEDS ORDERED: REMOVE OLD NICODERM (NICOTINE) PATCH T-DERMAL SCH (21:00)
[2017-08-02] MEDS: CARVEDILOL 12.5 MG TAB PO SCH (22:15)
[2017-08-03] VITALS: BP 139/76; PULSE 78; RESP 22; TEMP 98.3; O2SAT 96
[2017-08-03 07:14] VITALS: PULSE 103
[2017-08-03 07:50] LABS: BASOPHIL % 0.4 % (0.0-2.0); EOSINOPHIL # 0.1 TH/MM3 (0-0.4); EOSINOPHIL % 1.9 % (0.0-4.0); HEMATOCRIT 41.3 % (39.0-51.0); LYMPH % 22.6 % (9.0-44.0); LYMPHOCYTE # 1.8 TH/MM3 (1.0-4.8); MEAN CELL VOLUME 96.1 FL (80.0-100.0); MEAN CORPUSCULAR HEMOGLOBIN 32.4 PG (27.0-34.0); MEAN CORPUSCULAR HGB CONC 33.8 % (32.0-36.0); MEAN PLATELET VOLUME 7.7 FL (7.0-11.0); MONO % 10.8 % (0.0-8.0); MONOCYTE # 0.8 TH/MM3 (0-0.9); NEUT % 64.3 % (16.0-70.0); PLATELET COUNT 195 TH/MM3 (150-450); RED CELL DISTRIBUTION WIDTH 14.4 % (11.6-17.2); WHITE BLOOD COUNT 7.8 TH/MM3 (4.0-11.0)
[2017-08-03 08:00] LABS: ALBUMIN 2.9 GM/DL (3.4-5.0); ALT (GPT) 51 U/L (12-78); AST (GOT) 84 U/L (15-37); BICARBONATE 19.9 MEQ/L (21.0-32.0); BLOOD UREA NITROGEN 4 MG/DL (7-18); CHLORIDE 114 MEQ/L (98-107); CHOLESTEROL 75 MG/DL (120-200); CREATININE 0.47 MG/DL (0.60-1.30); GLOMERULAR FILTRATION RATE 191 ML/MIN (>89); GLUCOSE,RANDOM 89 MG/DL (74-106); SODIUM (NA) 144 MEQ/L (136-145); TRIGLYCERIDES 65 MG/DL (42-150)
[2017-08-03 08:01] LABS: ALKALINE PHOSPHATASE 94 U/L (45-117); CALCIUM-PROTEIN CORRECTED 7.8 MG/DL (8.5-10.1); CHOLESTEROL/ HDL RATIO 1.73 RATIO; HDL CHOLESTEROL 43.2 MG/DL (40.0-60.0); LDL CHOLESTEROL 19 MG/DL (0-99); TOTAL BILIRUBIN ADULT 0.7 MG/DL (0.2-1.0); TOTAL PROTEIN 5.5 GM/DL (6.4-8.2)
[2017-08-03 08:30] VITALS: BP 121/66; PULSE 103; RESP 18; TEMP 101; O2SAT 93
[2017-08-03] MEDS ORDERED: POTASSIUM CHLORIDE 20 MEQ CONTROLLED RELEASE TAB PO ONE (08:30)
[2017-08-03] MEDS: CARVEDILOL 12.5 MG TAB PO SCH (08:51)
[2017-08-03] MEDS: NICOTINE 21 MG/24 HR PATCH T-DERMAL SCH (08:54)
[2017-08-03] MEDS ORDERED: CLOPIDOGREL 75 MG TAB PO SCH (09:00)
[2017-08-03] MEDS ORDERED: ACETAMINOPHEN 325 MG TAB PO PRN (09:45)
[2017-08-03] MEDS ORDERED: CHLORHEXIDINE GLUCONATE 2 % 1 PACK (2 CLOTHS) TOP PRN (09:45)
[2017-08-03] MEDS ORDERED: HEPARIN SODIUM - SQ 10,000 UNITS/ML VIAL SQ SCH (09:45)
[2017-08-03] MEDS ORDERED: NURSING INFORMATION XX SCH (09:45)
[2017-08-03] MEDS ORDERED: SODIUM CHLORIDE 0.9% FLUSH 10 ML FLUSH IV FLUSH PRN (09:45)
[2017-08-03] MEDS ORDERED: RESP: ALBUTEROL 2.5 MG/IPRATROPIUM 0.5 MG NEB (PRN) INH (09:45)
[2017-08-03] MEDS ORDERED: GLUCAGON 1 MG/ML VIAL OTHER PRN (10:00)
[2017-08-03] MEDS ORDERED: POTASSIUM CHLOR 40 MEQ PREMIX 100 ML IV PRN ×2 (10:00)
[2017-08-03] MEDS ORDERED: POTASSIUM PHOSPHATE MONOBASIC 500 MG TAB PO/TUBE PRN (10:00)
[2017-08-03] MEDS ORDERED: MAGNESIUM SULFATE INJ 2 GM in SODIUM CHLORIDE 0.9% INJ 96 ML IV PRN (10:00)
[2017-08-03] MEDS ORDERED: SODIUM PHOSPHATE INJ 30 MMOL in SODIUM CHLOR 0.9% 250 ML INJ 240 ML IV PRN (10:00)
[2017-08-03] MEDS ORDERED: POTASSIUM CHLOR 20 MEQ PREMIX 100 ML IV PRN ×2 (10:00)
[2017-08-03] MEDS ORDERED: POTASSIUM PHOSPHATE INJ 30 MMOL in SODIUM CHLOR 0.9% 250 ML INJ 250 ML IV PRN (10:00)
[2017-08-03] MEDS ORDERED: MAGNESIUM OXIDE 400 MG TAB PO PRN (10:00)
[2017-08-03] MEDS ORDERED: DEXTROSE 50% IN WATER 50 ML VIAL(D50) IV PUSH PRN (10:00)
[2017-08-03] MEDS ORDERED: MAGNESIUM SULFATE INJ 4 GM in SODIUM CHLORIDE 0.9% INJ 92 ML IV PRN (10:00)
[2017-08-03] MEDS ORDERED: POTASSIUM CHLORIDE 25 MEQ EFFERVESCENT TAB PO PRN (10:00)
[2017-08-03] MEDS ORDERED: RESP: ALBUTEROL 2.5 MG/IPRATROPIUM 0.5 MG NEB (SCH) INH (10:00)
[2017-08-03] MEDS ORDERED: POTASSIUM PHOSPHATE MONOBASIC 500 MG TAB PO PRN (10:00)
--- NOTE | 2017-08-03 10:11 | HHI.PR ---
Subjective Remarks continues with rambling speech, confused. Continues in restraints. Objective Vital Signs Date Time Temp Pulse Resp B/P (MAP) Pulse Ox O2 Delivery O2 Flow Rate FiO2 08/03/17 08:30 101.0 103 18 121/66 (84) 93 08/03/17 07:14 103 08/03/17 00:00 98.3 78 22 139/76 (97) 96 08/02/17 20:12 99 18 132/88 (103) 08/02/17 17:00 128 27 147/76 (99) 96 Room Air 08/02/17 16:00 122 24 129/66 (87) 97 Room Air 08/02/17 14:00 124 17 145/87 (106) 98 08/02/17 13:01 97 Nasal Cannula 2.00 08/02/17 12:53 93 18 167/91 (116) 98 Room Air 08/02/17 12:18 97.8 92 20 150/85 (106) 98 Room Air I/O 08/02/17 08/02/17 08/02/17 08/03/17 08/03/17 08/03/17 07:00 15:00 23:00 07:00 15:00 23:00 Intake Total 1000 ml Output Total 800 ml Balance -800 ml 1000 ml Intake IV Total 1000 ml Output Urine Total 800 ml # Voids 1 1 Result Diagram: 08/03/17 0704 08/03/17 0704 Objective Remarks GENERAL: Patient confused with rambling speech. Continues in four-point restraints. SKIN: Warm and dry. HEAD: Normocephalic. EYES: No scleral icterus. No injection or drainage. NECK: Supple, trachea midline. No JVD. CARDIOVASCULAR: Regular rate and rhythm without murmurs, gallops, or rubs. RESPIRATORY: Breath sounds equal bilaterally. No accessory muscle use. GASTROINTESTINAL: Abdomen soft, non-tender, nondistended. MUSCULOSKELETAL: No cyanosis, or edema. A/P Assessment and Plan 47-year-old male with a past medical history significant for coronary artery disease status post CABG in 2007, bipolar disorder, depression/anxiety, dyslipidemia, COPD with ongoing tobaccoism and peripheral vascular disease status post stenting who presented to [facility] ED with acute psychosis. //Acute psychosis, uncertain etiology Concern for anti-cholinergic delirium/respiratory failure History of bipolar disorder History of depression/anxiety Urine tox screen + for cannabis only Neg RPR 2012 -Consult psychiatry, appreciate assistance -Neurochecks, monitor vitals -Monitor on cardiac telemetry = Discussed with psychiatry. High risk of seizure, worsening rhabdomyolysis. Patient has not slept. Psychiatry would like patient intubated and sedated in the ICU. I have discussed with [facility] who will accept the patient. Appreciate assistance. //Rhabdomyolysis CK 3011 CKMB 29.9 -IVF hydration -trend CK -Monitor kidney function closely, repeat BMP in a.m. -hold home statin therapy for now = CK stable. Will switch to bicarb drip. //Hypokalemia -po repletion ordered -repeat BMP in am = Potassium 2.4. Expect to go down with bicarb drip. Will replace. //Hyponatremia, suspect secondary to dehydration/poor p.o. intake -IV fluid -Monitor sodium level = Sodium 139 on admission, subsequently 131. 144 currently. Continue to monitor. //CAD s/p CABG x 4 2007 //HTN Patient has no complaints of chest pain at this time -Monitor on telemetry -Resume patient on Plavix and Coreg (patients Coreg dose listed as 25mg daily in med rec, will order 12.5mg BID) -clonidine prn with parameters -continue to monitor //COPD, not in acute exacerbation Ongoing tobaccoism -monitor respiratory status -Duonebs prn //DVT prophylaxis -bilateral SCD/JODIE clinee Discharge Planning Transfer to [facility] Roscoe Sharma MD Aug 03, 2017 10:11
--- NOTE | 2017-08-03 10:20 | PD.CONS ---
HPI Service Critical Care Medicine Consult Requested By Dr. Rice Reason for Consult Severe psychosis, bipolar disorder Primary Care Physician Unknown History of Present Illness This is a 47-year-old male that presented to the ED on 08/01, brought in by his , with complaints of psychosis, insomnia, manic behavior. At that point in time per review of records the patient was completely disoriented and psychotic and admitted to the clinical unit G pot during that point in time the patient received Thorazine Zyprexa Benadryl and Haldol. Over the last 2 days the patient still has not had any sleep and continues to have severe psychosis. The patient had a psychiatric evaluation by Dr. Oshea recommendations are for the patient to be intubated for deeper sedation due to his refractory psychosis. I discussed the case with Dr. Sharma, critical care medicine has been consulted. The patient's past medical history is also significant for coronary artery disease, hypertension and COPD. Imaging and laboratory studies were performed during this admission and the patient is noted to have elevated creatinine kinase level and has been started on sodium bicarbonate infusion. The patient will be transferred to ICU for intubation as he is at high risk for respiratory failure, and requires deeper sedation secondary to his refractory psychosis per Dr. Rice. Review of Systems ROS Limitations: Clinical Condition Past Family Social History Allergies: Coded Allergies: No Known Allergies (Unverified , 06/12/14) Past Medical History Coronary artery disease status post CABG in 2007 COPD Dyslipidemia Bipolar disorder Psychosis- multiple psychiatric hospital admissions in the past Depression/anxiety Peripheral vascular disease S/P stenting Past Surgical History CABG in 2007 Peripheral vascular disease S/P stenting Reported Medications Reviewed Active Ordered Medications See MAR Family History Unable to obtain Social History Patient is Known THC use Unable to obtain additional history Physical Exam Vital Signs Vital Signs Date Time Temp Pulse Resp B/P (MAP) Pulse Ox O2 Delivery O2 Flow Rate FiO2 08/03/17 08:30 101.0 103 18 121/66 (84) 93 08/03/17 07:14 103 08/03/17 00:00 98.3 78 22 139/76 (97) 96 08/02/17 20:12 99 18 132/88 (103) 08/02/17 17:00 128 27 147/76 (99) 96 Room Air 08/02/17 16:00 122 24 129/66 (87) 97 Room Air 08/02/17 14:00 124 17 145/87 (106) 98 08/02/17 13:01 97 Nasal Cannula 2.00 08/02/17 12:53 93 18 167/91 (116) 98 Room Air 08/02/17 12:18 97.8 92 20 150/85 (106) 98 Room Air Physical Exam GENERAL: This is a 47-year-old well-developed well-nourished male with psychosis SKIN: Warm and dry. HEAD: Atraumatic. Normocephalic. EYES: Pupils equal and round. No scleral icterus. No injection or drainage. Extraocular movement intact ENT: No nasal bleeding or discharge. Mucous membranes pink and moist. NECK: Trachea midline. No JVD. CARDIOVASCULAR: Normal rate, regular rhythm. Hypertensive RESPIRATORY: No accessory muscle use. Clear to auscultation. Breath sounds equal bilaterally. GASTROINTESTINAL: Abdomen soft, non-tender, nondistended. No guarding. MUSCULOSKELETAL: Extremities without clubbing, cyanosis, or edema. No obvious deformities. NEUROLOGICAL: Awake appears to be alert to name only. RASS 0. No gross focal/ sensory deficits. Does not follow commands in all 4 extremities. But noted movement of extremities 4. Laboratory Laboratory Tests Test 08/02/17 11:11 08/02/17 13:00 08/03/17 07:04 08/03/17 08:00 Lactic Acid Level 1.4 Blood Urea Nitrogen 5 4 Creatinine 0.68 0.47 Random Glucose 111 89 Calcium Level 8.2 7.0 Sodium Level 131 144 Potassium Level 3.2 3.4 Chloride Level 96 114 Carbon Dioxide Level 24.7 19.9 Anion Gap 10 10 Estimat Glomerular Filtration Rate 124 191 Total Creatine Kinase 3011 2893 Creatine Kinase MB 29.9 19.9 Creatine Kinase MB % 1.0 0.7 White Blood Count 7.8 Red Blood Count 4.30 Hemoglobin 14.0 Hematocrit 41.3 Mean Corpuscular Volume 96.1 Mean Corpuscular Hemoglobin 32.4 Mean Corpuscular Hemoglobin Concent 33.8 Red Cell Distribution Width 14.4 Platelet Count 195 Mean Platelet Volume 7.7 Neutrophils (%) (Auto) 64.3 Lymphocytes (%) (Auto) 22.6 Monocytes (%) (Auto) 10.8 Eosinophils (%) (Auto) 1.9 Basophils (%) (Auto) 0.4 Neutrophils # (Auto) 5.0 Lymphocytes # (Auto) 1.8 Monocytes # (Auto) 0.8 Eosinophils # (Auto) 0.1 Basophils # (Auto) 0.0 CBC Comment DIFF FINAL Differential Comment Total Protein 5.5 Albumin 2.9 Alkaline Phosphatase 94 Aspartate Amino Transf (AST/SGOT) 84 Alanine Aminotransferase (ALT/SGPT) 51 Total Bilirubin 0.7 Protein Corrected Calcium 7.8 Triglycerides Level 65 Cholesterol Level 75 LDL Cholesterol 19 HDL Cholesterol 43.2 Cholesterol/HDL Ratio 1.73 Vitamin B12 Level 528 Ammonia 27 HIV (1&2) Ab and P24 Ag, 4th Gener NONREACTIVE Result Diagram: 08/03/17 0704 08/03/17 0704 Imaging Last Impressions Head CT 08/02/17 1604 Signed Impressions: CONCLUSION: 1. Negative for acute process Septic Shock Reassessment Septic shock perfusion: reassessment completed Assessment and Plan Problem List: (1) CAD (coronary artery disease) ICD Code: I25.10 - CAD (coronary artery disease) Status: Acute (2) Psychosis ICD Code: F29 - Unspecified psychosis not due to a substance or known physiological condition Status: Acute (3) Unspecified psychosis ICD Code: F29 - Unspecified psychosis not due to a substance or known physiological condition Assessment and Plan Assessment This is a 47 year old male with refractory severe psychosis, having received multiple medications without any noted change. Patient is at risk for respiratory failure, concern for anticholinergic delirium. Noted insomnia since admission. The patient with severe refractory psychosis they requested deeper sedation for planned intubation. Plan by systems: Neurologic: Severe acute psychosis Bipolar disorder Substance use disorder-cannabis Depression/anxiety Multiple psychiatric hospitalization Possible anticholinergic delirium 08/02 received in the ED- 200 mg of Benadryl, Haldol 25 mg, Ativan 4 mg, Thorazine 100 mg, olanzapine 20 mg 4 point restraints for patient safety Psychiatry following-Dr. Rice Planned intubation and sedation-we will utilize propofol for ventilator synchrony analgesia/sedation Acetaminophen 600 mg every 6 hours as needed for pain and/or fever Respiratory: Maintain O2 saturation greater than 92% Bronchodilators every 6 hours scheduled and every 2 hours as needed Ventilator bundle Chest x-rays and ABGs as clinically indicated Cardiovascular: CAD History of CABG 2007 Hypertension Continue Plavix aspirin and Coreg Labetalol 10 mg every 6 hours as needed for systolic blood pressure greater than 160 mmHG Renal: Apply condom catheter -- Strict I/Os FEN/GI: Rhabdomyolysis Hypocalcemia Creatinine kinase 2893, monitor trend Continue sodium bicarbonate infusion 150 cc/hr Replete electrolytes per ICU protocol Calcium gluconate 2 g IV now Maintain n.p.o. status for now for planned intubation Follow-up with dietary consult for tube Heme/ID: Monitor CBC Obtain cultures if clinically indicated Endocrine: Glucose monitoring per ICU protocol. Low-dose regimen -- SSI Prophylaxis: GI Prophylaxis Famotidine twice daily DVT Prophylaxis -- SCDs Heparin twice daily Lines: Peripheral IVs x 2. Central line if indicated Dispo: my billing statement This patient remains critically ill with one or more organ systems which are or may become a threat to life. I have spent in excess of 49 minutes discontinuously in the care and management of this patient. This time is exclusive of procedures, and includes, but is not limited to, evaluation of the patient, review of the medical record, discussions with family, consultants, nursing staff, or respiratory therapy, and documentation in the medical record. Code Status Full Discussed Condition With Dr. Sharma Problem Qualifiers (1) Psychosis: Qualified Codes: F29 - Unspecified psychosis not due to a substance or known physiological condition Renee Montez MD Aug 03, 2017 10:20
[2017-08-03] MEDS ORDERED: LABETALOL HCL 100 MG/20 ML VIAL IV PUSH PRN (10:30)
[2017-08-03] MEDS ORDERED: SODIUM BICARBONATE 8.4% INJ 150 MEQ in WATER STERILE FOR INJ 850 ML IV SCH (11:00)
[2017-08-03] MEDS ORDERED: POTASSIUM CHLOR 10 MEQ PREMIX 100 ML IV SCH (11:00)
[2017-08-03] MEDS ORDERED: LORazepam 2 MG/ML VIAL IV PUSH STA (11:27)
[2017-08-03] MEDS ORDERED: DIVALPROEX SODIUM E.R. 500 MG TAB PO ONE (11:30)
[2017-08-03 12:00] VITALS: BP 176/95; PULSE 97; RESP 22; TEMP 99.3; O2SAT 97
[2017-08-03] MEDS ORDERED: [UNRECOGNIZED DRUG - OTHER] IV SCH (12:00)
[2017-08-03] MEDS ORDERED: POTASSIUM CHLORIDE IV SCH (12:00)
[2017-08-03] MEDS ORDERED: CALCIUM GLUCONATE INJ 2 GM in DEXTROSE 5% IN WATER 100ML INJ 100 ML IV ONE ×2 (12:00)
[2017-08-03] MEDS ORDERED: SODIUM BICARBONATE IV SCH (12:00)
[2017-08-03] MEDS ORDERED: INSULIN ASPART SUPPLEMENTAL SCALE SQ SCH (12:00)
[2017-08-03] MEDS ORDERED: PROPOFOL 1000 MG/100 ML INJ 100 ML IV PRN (12:30)
[2017-08-03] MEDS ORDERED: fentaNYL CITRATE 250 MCG/5 ML AMP IV PUSH ONE (12:30)
[2017-08-03] MEDS ORDERED: ROCURONIUM INJ 50 MG/5 ML VIAL IV ONE (12:30)
[2017-08-03] MEDS ORDERED: PROPOFOL 200 MG/20 ML AMP IV ONE (12:30)
[2017-08-03] MEDS ORDERED: SUCCINYLCHOLINE CHLORIDE 200 MG/10 ML VIAL IV PUSH ONE (12:36)
[2017-08-03] MEDS ORDERED: ARTIFICIAL TEARS OPTH SOLN 15 ML BTL EACH EYE SCH (13:00)
--- NOTE | 2017-08-03 13:26 | HHI.PYPN ---
Subjective Remarks Patient was seen today for psychiatric reevaluation. He continues to be poorly cooperative, agitated, restless, restrained in 4 points. The patient is quite disorganized, does not make sense, illogical, disoriented in person, time and place. Patient keep voicing very loud incoherent statements in the ER. He can follow very simple directions/commands, but no complex. I have discussed with him the convenience of considering to sedate the patient and intubate given his elevated risk of developing antipsychotic side effects such as an NMS or anticholinergic delirium due to the high amount of medications given in the last 24 hours. Review of Systems Except as stated in HPI: all other systems reviewed are Neg Mental Status Examination Appearance: Disheveled Consciousness: Obtunded, Clouded Orientation: Person Speech: Incoherent Attention and Concentration: Inadequate Memory: Impaired Mood: Angry Affect: Irritable, Labile Thought Process & Associations: Loose associations, Disorganized, Word salad Thought Content: Bizarre thinking, Racing thoughts, Delusional Hallucination Type: None Delusion Type: Bizarre, Paranoid Suicidal Ideation: No Suicidal Plan: No Suicidal Intention: No Homicidal Ideation: No Homicidal Plan: No Homicidal Intention: No Insight: Poor Judgment: Poor Results Labs Test 08/03/17 07:04 08/03/17 08:00 White Blood Count 7.8 TH/MM3 Red Blood Count 4.30 MIL/MM3 Hemoglobin 14.0 GM/DL Hematocrit 41.3 % Mean Corpuscular Volume 96.1 FL Mean Corpuscular Hemoglobin 32.4 PG Mean Corpuscular Hemoglobin Concent 33.8 % Red Cell Distribution Width 14.4 % Platelet Count 195 TH/MM3 Mean Platelet Volume 7.7 FL Neutrophils (%) (Auto) 64.3 % Lymphocytes (%) (Auto) 22.6 % Monocytes (%) (Auto) 10.8 % Eosinophils (%) (Auto) 1.9 % Basophils (%) (Auto) 0.4 % Neutrophils # (Auto) 5.0 TH/MM3 Lymphocytes # (Auto) 1.8 TH/MM3 Monocytes # (Auto) 0.8 TH/MM3 Eosinophils # (Auto) 0.1 TH/MM3 Basophils # (Auto) 0.0 TH/MM3 CBC Comment DIFF FINAL Differential Comment Blood Urea Nitrogen 4 MG/DL Creatinine 0.47 MG/DL Random Glucose 89 MG/DL Total Protein 5.5 GM/DL Albumin 2.9 GM/DL Calcium Level 7.0 MG/DL Alkaline Phosphatase 94 U/L Aspartate Amino Transf (AST/SGOT) 84 U/L Alanine Aminotransferase (ALT/SGPT) 51 U/L Total Bilirubin 0.7 MG/DL Sodium Level 144 MEQ/L Potassium Level 3.4 MEQ/L Chloride Level 114 MEQ/L Carbon Dioxide Level 19.9 MEQ/L Anion Gap 10 MEQ/L Estimat Glomerular Filtration Rate 191 ML/MIN Protein Corrected Calcium 7.8 MG/DL Phosphorus Level 1.9 MG/DL Total Creatine Kinase 2893 U/L Creatine Kinase MB 19.9 NG/ML Creatine Kinase MB % 0.7 % Triglycerides Level 65 MG/DL Cholesterol Level 75 MG/DL LDL Cholesterol 19 MG/DL HDL Cholesterol 43.2 MG/DL Cholesterol/HDL Ratio 1.73 RATIO Vitamin B12 Level 528 PG/ML Ammonia 27 MCMOL/L Rapid Plasma Reagin NON-REACTIVE HIV (1&2) Ab and P24 Ag, 4th Gener NONREACTIVE Vitals/IOs Vital Signs Date Time Temp Pulse Resp B/P (MAP) Pulse Ox O2 Delivery O2 Flow Rate FiO2 08/03/17 12:00 99.3 97 22 176/95 (122) 97 08/02/17 17:00 Room Air 08/02/17 13:01 2.00 Assessment & Plan Problem List: (1) Unspecified psychosis ICD Codes: F29 - Unspecified psychosis not due to a substance or known physiological condition Assessment & Plan: Patient continues to be acutely psychotic/delirious, agitated, restless, with impaired attention span, level of consciousness, very poor contact with reality, disinhibited. Will order Ativan 2 mg IV. Depakote 500 mg twice daily. Try to avoid neuroleptics. Patient is on the Bonilla act, to be admitted in psychiatry was medically stable. Assessment & Plan Estimated LOS: days Justification for Cont. Inpt. To be admitted in psychiatry was medically stable Alberto Rice MD Aug 03, 2017 13:26
[2017-08-03 17:12] LABS: HEMOGLOBIN A1C 5.5 % (4.3-6.0)
[2017-08-03] MEDS ORDERED: SODIUM CHLORIDE 0.9% FLUSH 10 ML FLUSH IV FLUSH SCH (21:00)
[2017-08-03] MEDS ORDERED: FAMOTIDINE 20 MG/2 ML VIAL IV PUSH SCH (21:00)
[2017-08-03] MEDS ORDERED: DIVALPROEX SODIUM E.R. 500 MG TAB PO SCH (21:00)
[2017-08-04] MEDS ORDERED: CHLORHEXIDINE GLUCONATE 2 % 1 PACK (2 CLOTHS) TOP SCH (04:00)
== END 2017-08-03 12:36 | disposition short-term general hospital (02) | DRG 885 ==
LOC: NEPJ 11:32 → NEDA 08-02 08:12 → NEPGCP 08-02 23:11
PROVIDERS: ADMIT Psychiatry & Neurology Psychiatry; ATTEND Psychiatry & Neurology Psychiatry
DX: F29 Unspecified psychosis not due to a substance or known physiological condition (principal); M62.82 Rhabdomyolysis; E87.1 Hypo-osmolality and hyponatremia; Z78.1 Physical restraint status; E83.51 Hypocalcemia; I25.10 Atherosclerotic heart disease of native coronary artery without angina pectoris; Z95.1 Presence of aortocoronary bypass graft; J44.9 Chronic obstructive pulmonary disease, unspecified; I73.9 Peripheral vascular disease, unspecified; E78.5 Hyperlipidemia, unspecified; E87.6 Hypokalemia; I10 Essential (primary) hypertension; F12.90 Cannabis use, unspecified, uncomplicated
CPT/HCPCS: 70450; 76937; 80048; 80053; 80061; 80307; 82140; 82550; 82552; 82607; 82948; 83036; 83605; 84100; 84425; 84443; 85025; 86592; 87389; 93005; 94664; 96372; G0475; G0481; J1200; J1630; J2060; J3230; J3486; J7030; Q0163

== ENCOUNTER 2017-08-09 14:33 | Inpatient (IN) ==
[2017-08-22] MEDS ORDERED: Acetaminophen 325 MG Tablet PO PRN (08:46)
[2017-08-22] MEDS ORDERED: Aluminum/Magnesium/Simethacone Susp 30 ML UDC PO PRN (08:47)
[2017-08-22] MEDS ORDERED: LORazepam 1 MG Tablet PO PRN (08:48)
[2017-08-22] MEDS ORDERED: Haloperidol 5 MG Tablet ONE (08:52)
[2017-08-22] MEDS ORDERED: carBAMazepine 200 MG Tablet ONE (08:52)
[2017-08-22] MEDS ORDERED: Senna/Docusate Sodium 8.6/50 MG Tablet ONE (08:52)
[2017-08-22] MEDS ORDERED: Bisacodyl 10 MG Supp RECTAL PRN (08:59)
[2017-08-22] MEDS: Haloperidol 5 MG Tablet PO SCH ×2 (12:31→21:37)
[2017-08-22] MEDS: Carvedilol 6.25 MG Tablet PO SCH ×2 (12:31→21:33)
[2017-08-22] MEDS: Senna/Docusate Sodium 8.6/50 MG Tablet PO SCH ×2 (12:31→21:37)
[2017-08-22] MEDS: carBAMazepine 200 MG Tablet PO SCH ×2 (12:32→21:38)
--- NOTE | 2017-08-22 16:00 | P.PNPSY ---
Subjective Remarks: Patient was seen and case discussed with nursing. Patient is less psychotic. He has not had any B bizarre behaviors as he had upon his admission. Appears less focused on his bowel movements. Says he had a productive visit with his . He does remain vigilant with a fixed stare during the interview. Denies auditory or visual hallucinations. Compliant with medications and behaving well on the unit Mental Status Examination Appearance: Disheveled Consciousness: Alert Orientation: x4 Motor Activity: Normal gait Speech: Hesitant Language: Adequate Fund of Knowledge: Adequate Attention and Concentration: Easily distracted Memory: Unremarkable Mood: Appropriate Affect: Flat Thought Process & Associations: Disorganized Thought Content: Appropriate Hallucination Type: None Delusion Type: None Suicidal Ideation: No Suicidal Plan: No Suicidal Intention: No Homicidal Ideation: No Homicidal Plan: No Homicidal Intention: No Insight: Poor Judgment: Poor Assessment and Plan - Assessment (1) Brief psychotic disorder Code(s): F23 - Brief psychotic disorder Status: Acute - Plan Plan: Estimated LOS: [] days Continue current treatment plan Justification for Continued Inpatient Stay: Patient would decompensate in a less restrictive setting
[2017-08-22] MEDS: traZODone 50 MG Tablet PO SCH (21:34)
--- NOTE | 2017-08-23 09:16 | P.PNPSY ---
Subjective Remarks: Patient seen and examined in coverage for Dr. Briggs. Chart reviewed. Case discussed with nursing staff. No behavioral issues noted overnight. On my examination today, patient is less impulsive. He remains confused and continues to wander about the unit, occasionally requiring redirection by staff. He denies any SI or HI. Denies any AVH. Denies any side effects from medications. No physical complaints. Review of Systems other (Limited ROS due to mental status) Mental Status Examination Appearance: Disheveled Consciousness: Alert Orientation: Person, Place Motor Activity: Normal gait Speech: Hesitant Language: Adequate Fund of Knowledge: Adequate Attention and Concentration: Easily distracted Memory: Impaired (On clinical exam) Mood: Appropriate Affect: Blunt Thought Process & Associations: Disorganized Thought Content: Other (Some poverty of thought) Hallucination Type: None Delusion Type: None Suicidal Ideation: No Suicidal Plan: No Suicidal Intention: No Homicidal Ideation: No Homicidal Plan: No Homicidal Intention: No Insight: Poor Judgment: Poor Assessment and Plan - Assessment (1) Brief psychotic disorder Code(s): F23 - Brief psychotic disorder Status: Acute - Plan Plan: Continue current psychotropics as ordered. Continue to monitor on the inpatient unit. Continue other medications and care as ordered. Justification for Continued Inpatient Stay: Risk for decompensation in less restrictive environment Discharge Planning: As per Dr. Briggs
[2017-08-23] MEDS: Haloperidol 5 MG Tablet PO SCH ×3 (11:28→20:14)
[2017-08-23] MEDS: Senna/Docusate Sodium 8.6/50 MG Tablet PO SCH (11:28)
[2017-08-23] MEDS: Carvedilol 6.25 MG Tablet PO SCH ×2 (11:28→20:10)
[2017-08-23] MEDS: carBAMazepine 200 MG Tablet PO SCH ×2 (11:29→20:10)
[2017-08-23] MEDS: traZODone 50 MG Tablet PO SCH (20:09)
[2017-08-24] MEDS: Senna/Docusate Sodium 8.6/50 MG Tablet PO SCH ×3 (04:27→20:20)
[2017-08-24] MEDS: Haloperidol 5 MG Tablet PO SCH ×2 (09:20→20:15)
[2017-08-24] MEDS: Carvedilol 6.25 MG Tablet PO SCH ×2 (09:20→20:15)
[2017-08-24] MEDS: carBAMazepine 200 MG Tablet PO SCH ×2 (09:20→22:48)
--- NOTE | 2017-08-24 11:42 | P.PNPSY ---
Subjective Remarks: Patient seen and examined with nurse in coverage for Dr. Briggs. Chart reviewed. Case discussed with nursing staff. Patient noted to be less intrusive. Case discussed in treatment team. On my exam today, patient is calm and cooperative. He has no particular complaints. Remains fairly confused. Denies side effects from medications. No physical complaints. Vital Signs Temp Pulse BP Pulse Ox 08/24/17 05:39 98.5 F 75 122/71 99 Labs reviewed. Review of Systems All other systems reviewed negative except as stated in HPI (Limitation: Poor historian) Mental Status Examination Appearance: Disheveled Consciousness: Alert Orientation: Person (At least) Motor Activity: Normal gait Speech: Hesitant Language: Adequate Fund of Knowledge: Adequate Attention and Concentration: Easily distracted Memory: Impaired (On clinical exam) Mood: Appropriate Affect: Blunt Thought Process & Associations: Tangential Thought Content: Other (Some poverty of thought) Hallucination Type: None Delusion Type: None Suicidal Ideation: No Suicidal Plan: No Suicidal Intention: No Homicidal Ideation: No Homicidal Plan: No Homicidal Intention: No Insight: Poor Judgment: Poor Assessment and Plan - Assessment (1) Brief psychotic disorder Code(s): F23 - Brief psychotic disorder Status: Acute - Plan Plan: Continue current psychotropic medications as ordered. Continue to monitor on the inpatient unit. Continue other medications and care as ordered. Justification for Continued Inpatient Stay: Risk for decompensation in less restrictive environment Discharge Planning: Per Dr. Briggs
[2017-08-24] MEDS: traZODone 50 MG Tablet PO SCH (20:15)
[2017-08-25] MEDS: carBAMazepine 200 MG Tablet PO SCH ×2 (09:00→20:40)
[2017-08-25] MEDS: Haloperidol 5 MG Tablet PO SCH ×2 (09:51→20:40)
[2017-08-25] MEDS: Senna/Docusate Sodium 8.6/50 MG Tablet PO SCH ×2 (09:51→20:39)
[2017-08-25] MEDS: Carvedilol 6.25 MG Tablet PO SCH ×2 (09:51→20:41)
--- NOTE | 2017-08-25 13:46 | P.PNPSY ---
Subjective Remarks: Patient seen and martinez with nurse Renee, chart reviewed, patient complaint medications, patient discussed with nurse. Patient alert oriented calm cooperative and pleasant with me. It appears his behaviors have settled down somewhat. Tegretol blood level drawn on 08/23 is 9.5. We will continue dosage no change. Patient denies voices or visions denies suicidality and homicidal for now continue treatment placement remains somewhat problematic Review of Systems All other systems reviewed negative except as stated in HPI Mental Status Examination Appearance: Disheveled Consciousness: Alert Orientation: Person (At least) Motor Activity: Normal gait Speech: Hesitant Language: Adequate Fund of Knowledge: Adequate Attention and Concentration: Easily distracted Memory: Impaired (On clinical exam) Mood: Appropriate Affect: Blunt Thought Process & Associations: Tangential Thought Content: Other (Some poverty of thought) Hallucination Type: None Delusion Type: None Suicidal Ideation: No Suicidal Plan: No Suicidal Intention: No Homicidal Ideation: No Homicidal Plan: No Homicidal Intention: No Insight: Poor Judgment: Poor Assessment and Plan - Assessment (1) Brief psychotic disorder Code(s): F23 - Brief psychotic disorder Status: Acute - Plan Plan: Patient continues calm cooperative with no significant behavioral problems. Less inappropriate sexual behavior also. Tegretol level is in good therapeutic range will continue dose no change. She will need to consider various placement options Justification for Continued Inpatient Stay: At this time patient would decompensate a place to the lower level of care Discharge Planning: To be determined - Attending Attestation I have examined this patient and done the above progress note
[2017-08-25] MEDS: traZODone 50 MG Tablet PO SCH (20:41)
[2017-08-26] MEDS: carBAMazepine 200 MG Tablet PO SCH ×2 (09:07→20:26)
[2017-08-26] MEDS: Carvedilol 6.25 MG Tablet PO SCH ×2 (09:07→20:26)
[2017-08-26] MEDS: Haloperidol 5 MG Tablet PO SCH ×2 (09:07→20:26)
[2017-08-26] MEDS: Senna/Docusate Sodium 8.6/50 MG Tablet PO SCH ×2 (09:07→20:26)
--- NOTE | 2017-08-26 15:58 | P.PNPSY ---
Subjective Remarks: Patient seen in his room with nurse Radha, chart reviewed, patient complaint medications. Patient continues calm cooperative the cognitive deficits persist but the intensity is softening and mild paranoia softened the vigilance is softening it appears she is showing less interest in following females around. Review of Systems All other systems reviewed negative except as stated in HPI Mental Status Examination Appearance: Appropriate Consciousness: Alert Orientation: Person (At least), Place Motor Activity: Normal gait Speech: Unremarkable (Slightly hesitant) Language: Adequate Fund of Knowledge: Adequate Attention and Concentration: Easily distracted Memory: Impaired (On clinical exam) Mood: Other (Euthymic) Affect: Other (Slight decreased range and intensity) Thought Process & Associations: Circumstantial, Tangential Thought Content: Other (Some poverty of thought) Hallucination Type: None Delusion Type: None Suicidal Ideation: No Suicidal Plan: No Suicidal Intention: No Homicidal Ideation: No Homicidal Plan: No Homicidal Intention: No Insight: Poor Judgment: Poor Assessment and Plan - Assessment (1) Brief psychotic disorder Code(s): F23 - Brief psychotic disorder Status: Acute - Plan Plan: Patient's cognitive deficits persisted his behavior is improved he seems calmer and more focused for now continue treatment Justification for Continued Inpatient Stay: At this time patient would decompensate a place to a lower level of care Discharge Planning: To be determined
[2017-08-26] MEDS: traZODone 50 MG Tablet PO SCH (20:26)
[2017-08-27] MEDS: Senna/Docusate Sodium 8.6/50 MG Tablet PO SCH ×2 (09:07→21:20)
[2017-08-27] MEDS: Haloperidol 5 MG Tablet PO SCH ×2 (09:08→21:20)
[2017-08-27] MEDS: Carvedilol 6.25 MG Tablet PO SCH ×2 (09:08→21:20)
[2017-08-27] MEDS: carBAMazepine 200 MG Tablet PO SCH ×2 (09:10→21:20)
--- NOTE | 2017-08-27 14:37 | P.PNPSY ---
Subjective Remarks: Patient seen in day room with floor staff, chart reviewed, patient compliant medication. Patient continues calm cooperative, says states they have noted him being calmer and more appropriate with his visit also. He denies suicidality homicidality voice or visions. For now continue treatment we need to discuss discharge plans possible placement issues with his Review of Systems All other systems reviewed negative except as stated in HPI Mental Status Examination Appearance: Appropriate Consciousness: Alert Orientation: Person (At least), Place Motor Activity: Normal gait Speech: Unremarkable (Slightly hesitant) Language: Adequate Fund of Knowledge: Adequate Attention and Concentration: Easily distracted Memory: Impaired (On clinical exam) Mood: Other (Euthymic) Affect: Other (Slight decreased range and intensity) Thought Process & Associations: Circumstantial, Tangential Thought Content: Other (Some poverty of thought) Hallucination Type: None Delusion Type: None Suicidal Ideation: No Suicidal Plan: No Suicidal Intention: No Homicidal Ideation: No Homicidal Plan: No Homicidal Intention: No Insight: Poor Judgment: Poor Assessment and Plan - Assessment (1) Brief psychotic disorder Code(s): F23 - Brief psychotic disorder Status: Acute - Plan Plan: Patient continues to show gradual improvement in appears his impulsivity and some of his inappropriate behaviors have markedly diminished. He is calm cooperative with me Justification for Continued Inpatient Stay: At this time patient would decompensate a place to a lower level of care Discharge Planning: To be determined
[2017-08-27] MEDS: traZODone 50 MG Tablet PO SCH (21:20)
[2017-08-28] MEDS: Carvedilol 6.25 MG Tablet PO SCH ×2 (08:57→21:37)
[2017-08-28] MEDS: Senna/Docusate Sodium 8.6/50 MG Tablet PO SCH ×2 (08:57→21:39)
[2017-08-28] MEDS: Haloperidol 5 MG Tablet PO SCH ×2 (08:58→21:38)
--- NOTE | 2017-08-28 14:02 | P.PNPSY ---
Subjective Remarks: Pt seen and discussed with staff. He is pleasantly confused and disorganized. He has been compliant with medications. No SI/HI. NO aggression Mental Status Examination Appearance: Appropriate Consciousness: Alert Orientation: Person (At least), Place Motor Activity: Normal gait Speech: Unremarkable (Slightly hesitant) Language: Adequate Fund of Knowledge: Adequate Attention and Concentration: Easily distracted Memory: Impaired (On clinical exam) Mood: Other (Euthymic) Affect: Other (Slight decreased range and intensity) Thought Process & Associations: Tangential Thought Content: Other (Some poverty of thought) Hallucination Type: None Delusion Type: None Suicidal Ideation: No Suicidal Plan: No Suicidal Intention: No Homicidal Ideation: No Homicidal Plan: No Homicidal Intention: No Insight: Poor Judgment: Poor Assessment and Plan - Assessment (1) Brief psychotic disorder Code(s): F23 - Brief psychotic disorder Status: Acute - Plan Plan: Continue current tx plan Justification for Continued Inpatient Stay: risk of decompensation
[2017-08-28] MEDS: carBAMazepine 200 MG Tablet PO SCH ×2 (17:33→21:39)
[2017-08-28] MEDS: traZODone 50 MG Tablet PO SCH (21:38)
[2017-08-29] MEDS: Carvedilol 6.25 MG Tablet PO SCH ×2 (10:12→21:06)
[2017-08-29] MEDS: Haloperidol 5 MG Tablet PO SCH ×2 (10:12→21:06)
[2017-08-29] MEDS: Senna/Docusate Sodium 8.6/50 MG Tablet PO SCH ×2 (10:13→21:06)
[2017-08-29] MEDS: carBAMazepine 200 MG Tablet PO SCH ×2 (10:13→21:06)
[2017-08-29] MEDS: traZODone 50 MG Tablet PO SCH (21:06)
--- NOTE | 2017-08-29 21:50 | P.PNPSY ---
Subjective Remarks: Pt seen and discussed with staff. He is compliant with medications and tolerating without side effects.No aggression or agitation today. He reports that his sleep has been improving and mood is better. Pt states that he is only hearing "2 voices and I know them" and is pleased with medications. Mental Status Examination Appearance: Appropriate Consciousness: Alert Orientation: Person (At least), Place Motor Activity: Normal gait Speech: Unremarkable (Slightly hesitant) Language: Adequate Fund of Knowledge: Adequate Attention and Concentration: Easily distracted Memory: Unremarkable Mood: Appropriate Affect: Flat Thought Process & Associations: Tangential Thought Content: Hallucinations, Other (concrete) Hallucination Type: Auditory Delusion Type: None Suicidal Ideation: No Suicidal Plan: No Suicidal Intention: No Homicidal Ideation: No Homicidal Plan: No Homicidal Intention: No Insight: Poor Judgment: Poor Assessment and Plan - Assessment (1) Brief psychotic disorder Code(s): F23 - Brief psychotic disorder Status: Acute - Plan Plan: Continue current tx plan Justification for Continued Inpatient Stay: risk of decompensation
[2017-08-30 06:10] VITALS: BP 117/72; PULSE 79; RESP 17; TEMP 98.7; O2SAT 97
[2017-08-30] MEDS: Haloperidol 5 MG Tablet PO SCH (08:39)
[2017-08-30] MEDS: carBAMazepine 200 MG Tablet PO SCH (08:39)
[2017-08-30] MEDS: Senna/Docusate Sodium 8.6/50 MG Tablet PO SCH (08:39)
[2017-08-30] MEDS: Carvedilol 6.25 MG Tablet PO SCH (08:39)
--- NOTE | 2017-09-01 16:08 | P.DSPSY ---
Psychiatry Discharge Summary Inpatient Psychiatric care?: Yes Advance Directives: No Reason for Unknown:: Due to Patient Condition Mental Health Advance Directive: No Health Care Proxy: No - Admission Admission Date: August 09, 2017 14:33 - Admission Diagnosis (1) Brief psychotic disorder Code(s): F23 - Brief psychotic disorder Brief History: Please see psychiatric H&P dictated on 08/09 in the EMR Via [employer] from prior programming Tobacco Use In Past 30 Days: No How Often Do You Have a Drink Containing Alcohol: Monthly or less Hospital Course: Patient's hospital course was uneventful she was cooperative with me compliant with medications with no significant behavioral problems, the addition of the Haldol to her regimen allow her psychotic features of paranoia and delusional ideation to slowly resolved. Thus by discharge patient denied suicidality homicidality voice or visions is compliant with medications she was discharged to the community to follow-up mental health services in the community - Discharge Discharge Date: 08/27/17 - Discharge Diagnosis (1) Brief psychotic disorder Code(s): F23 - Brief psychotic disorder Status: Acute Discharge Disposition: Home - Discharge Instructions Discharge Diet: Regular Diet Activities You Can Perform: Regular- No Restrictions - Discharge Time > 30 minutes Mental Status Examination Appearance: Appropriate Consciousness: Alert Orientation: Person (At least), Place Motor Activity: Normal gait Speech: Unremarkable (Slightly hesitant) Language: Adequate Fund of Knowledge: Adequate Attention and Concentration: Easily distracted Memory: Unremarkable Mood: Appropriate Affect: Flat Thought Process & Associations: Tangential Thought Content: Hallucinations, Other (concrete) Hallucination Type: Auditory Delusion Type: None Suicidal Ideation: No Suicidal Plan: No Suicidal Intention: No Homicidal Ideation: No Homicidal Plan: No Homicidal Intention: No Insight: Poor Judgment: Poor Discharge/Advance Care Plan - Results Vital Signs: Last Vital Signs Temp 98.7 F 08/30/17 06:00 Pulse 79 08/30/17 06:00 Resp 17 08/30/17 06:00 BP 117/72 08/30/17 06:00 Pulse Ox 97 08/30/17 06:00 Lab Results: Laboratory Results Hemoglobin A1c 5.7 % (4.3-6.0) 08/10/17 09:37 Triglycerides 121 MG/DL (42-150) 08/10/17 09:37 Cholesterol 154 MG/DL (120-200) 08/10/17 09:37 HDL Cholesterol 34.2 MG/DL (40.0-60.0) L 08/10/17 09:37 Summary of Procedures: None done Pending Results: None - Medications Number of antipsychotic medications at discharge: 1 - Discharge Care Plan Goals to Promote Your Health: * To prevent worsening of your condition and complications * To maintain your health at the optimal level Directions to Meet Your Goals: Take your medications as prescribed Follow your dietary instruction Follow activity as directed Keep your appointments as scheduled Take your immunizations and boosters as scheduled If your symptoms worsen call your PCP, if no PCP go to Urgent Care Center or Emergency Room For 14/09 questions related to your inpatient stay or results of tests pending at discharge, please contact Dr. Irving Briggs MD at Smoking is Dangerous to Your Health. Avoid second hand smoking
== END 2017-08-30 17:24 | disposition home health service (06) ==
LOC: H270 14:33
PROVIDERS: ADMIT Psychiatry & Neurology Psychiatry; ATTEND Psychiatry & Neurology Psychiatry